=== PATIENT | female | born 1940 | race Caucasian/White ===

== ENCOUNTER → 2016-08-13 | Outpatient (CLI) | payer MEDICARE, BC ==
[2016-08-13 16:06] LABS: Blood Urea Nitrogen 21 mg/dL (7-17); Non-African American GFR(MDRD) >60 (>60 ml/min/1.73 sqM)
== END ==
LOC: LABWHC1 15:26
PROVIDERS: ATTEND Orthopaedic Surgery Orthopaedic Surgery of the Spine
DX: Z01.818 Encounter for other preprocedural examination (principal); N28.9 Disorder of kidney and ureter, unspecified
CPT/HCPCS: 36415; 82565; 84520

== ENCOUNTER → 2016-11-08 | Outpatient (CLI) | payer MEDICARE, BC ==
--- NOTE | 2016-11-10 12:52 | P.ARTDOP ---
Arterial Doppler LOWER EXTREMITY ARTERIAL DOPPLER: DATE OF SERVICE: 11/08/2016 Reason for study: Bilateral claudication. Doppler waveforms: Multiphasic bilaterally throughout. Pulse volume recording: Normal configuration. Pressure gradients: None. Ankle-brachial indices: Greater than 1 bilaterally. Toe pressures: 111 on the right, 111 on the left Impression: Normal study.
== END ==
LOC: RADUSWWP 12:04
PROVIDERS: ATTEND Physical Medicine & Rehabilitation
DX: I73.9 Peripheral vascular disease, unspecified (principal); R22.9 Localized swelling, mass and lump, unspecified; M51.16 Intervertebral disc disorders with radiculopathy, lumbar region; M47.26 Other spondylosis with radiculopathy, lumbar region; M62.81 Muscle weakness (generalized); M25.551 Pain in right hip
CPT/HCPCS: 93923

== ENCOUNTER → 2018-03-17 | Outpatient (CLI) | payer MEDICARE, BC ==
--- NOTE | 2018-03-17 10:34 | MM ---
Reason for exam: screening (asymptomatic). Last mammogram was performed 2 years and 2 months ago. History: Patient is postmenopausal. Family history of premenopausal breast cancer in paternal aunt at age 40. Benign cyst aspiration of the left breast, 1979. Physical Findings: A clinical breast exam by your physician is recommended on an annual basis and results should be correlated with mammographic findings. MG 3D Screening Mammo W/Cad Bilateral CC and MLO view(s) were taken. Prior study comparison: January 09, 2016, bilateral MG 3d screening mammo w/cad. January 03, 2014, bilateral MG screening mammo w CAD. There are scattered fibroglandular densities. Stable benign calcifications. There is no discrete abnormality. No significant changes when compared with prior studies. ASSESSMENT: Benign, BI-RAD 2 RECOMMENDATION: Routine screening mammogram of both breasts in 1 year.
--- NOTE | 2018-03-20 08:01 | BD ---
EXAMINATION TYPE: Axial Bone Density DATE OF EXAM: 03/17/2018 COMPARISON: 01/09/2016 CLINICAL HISTORY: Postmenopausal female Height: 65.5 IN Weight: 222 LBS RISK FACTORS HISTORY OF: Active: YES Diet low in dairy products/other sources of calcium: YES Postmenopausal woman: AGE 48 Lost more than 2 inches in height since high school: YES 03/15" MEDICATIONS: Thyroid Medications: YES Which medication: Levothyroxine How Lon YEARS Additional Medications: VIT D, LEVOTHYROXINE, ZOLOFT, EXAM MEASUREMENTS: Bone mineral densitometry was performed using the [employer] System. PT STATES HAD DISC SURGERY IN 1999 TO L-SPINE. Bone mineral density as measured about the Lumbar spine is: ----- L1-L4(G/cm2): 1.211 T Score Values are as follows: ----- L2: -0.9 ----- L3: 1.8 ----- L4: 2.3 ----- L1-L4: 0.3 Bone mineral density BASELINE Bone mineral density about the R hip (g/cm2): 0.990 Bone mineral density about the L hip (g/cm2): 0.835 T Score values are as follows: -----R Neck: -0.3 -----L Neck: -1.5 -----R Total: -0.5 -----L Total: -0.7 Bone mineral density has: Decreased -1.2% since study of: 01/09/2016 IMPRESSION: Osteopenia (T Score between -2.5 and -1) now identified femoral neck level left hip. There is slightly increased risk of fracture and the patient may be considered for treatment. Re-Screen 2-5 years. NOTE: T-SCORE=SD OF THE YOUNG ADULT MEAN.
== END ==
LOC: RADMAMWWP 07:12
PROVIDERS: ATTEND Internal Medicine
DX: Z12.31 Encounter for screening mammogram for malignant neoplasm of breast (principal); M85.80 Other specified disorders of bone density and structure, unspecified site; Z78.0 Asymptomatic menopausal state
CPT/HCPCS: 77063; 77067; 77080

== ENCOUNTER → 2018-04-18 | Outpatient (CLI) | payer MEDICARE, BC ==
--- NOTE | 2018-04-18 15:34 | CONS ---
CONSULTATION REASON FOR CONSULTATION: This is a consultation for sleep apnea. HISTORY OF PRESENT ILLNESS: 77-year-old female patient. Primary of Dr. Schmidt, coming in for a re-evaluation regarding obstructive sleep apnea. I diagnosed this patient with ESTEBAN back in September of 2014. At that time, the patient had severe ESTEBAN with an AHI of 39.5. She also demonstrated severe nocturnal oxygen desaturation. The patient dropped her pulse ox below 90%. 48% of sleep time. Her sleep efficiency was poor at 46% and she suffers from excessive daytime sleepiness. Her body mass index back then was 34.5. She had asthma and hyperlipidemia as comorbidities. CPAP titration was done. The patient was started on CPAP pressure of 13 cm of water. Note that the patient continued to have poor sleep efficiency that improved up to 71% while on the titration. However it did not normalize. Obstructive respiratory events were eliminated. Periodic limb movements were noted that were moderate to severe in nature. The patient continued to have some difficulties in tolerating the CPAP and ultimately she quit the treatment and she has been off treatment for the past 3 years. She is coming in for reevaluation. She is interested in reinitiating back her treatment. Her sleep quality remains poor. She is quite anxious at nighttime. She cannot shut down her brain and she is having difficulty in sleep initiation. She goes to bed around 10 or 11 pm, wakes up 7:00 am in the morning. Does not take any naps. She snores at nighttime and she continues to have symptoms of restlessness and increased anxiety despite being on Zoloft 50 mg p.o. daily. She wakes up with dry mouth. She is very much drowsy and sleepy during the day. PAST MEDICAL HISTORY: 1. Chronic bronchial asthma. 2. Obstructive sleep apnea. 3. Chronic anxiety. 4. Hypothyroidism. 5. Obesity. PAST SURGICAL HISTORY: Includes back surgery, appendectomy. DRUG ALLERGIES: To latex. OUTPATIENT MEDICATION: Include levothyroxine and Zoloft 50 mg p.o. daily, levothyroxine 50 mcg p.o. daily and singular 10 mg p.o. daily. SOCIAL HISTORY: Nonsmoker. No history of alcohol. No history of IV drugs. The patient is and she lives alone at home. FAMILY HISTORY: Negative for sleep apnea. REVIEW OF SYSTEMS: 12-point review of system was done. Positive findings are mentioned above in the history of present illness. Specifically there is no reported palpitations. No heartburn. No shortness of breath or chest pain at night time. She has chronic anxiety and depression. She has had no irritability. No altered mentation. No history of any motor vehicle accident because of feeling drowsy or sleepy. PHYSICAL EXAMINATION: Her current vitals: BP is 163/83, pulse 80, respirations 16, temp 98.2. Saturation 93% on room air. Weight is 224. Height is 5 feet 6 inches and BMI 36.1. General appearance: Calm comfortable, in no acute distress. Head is atraumatic, normocephalic. NECK: Supple. No JVD. No goiter or neck masses. Mallampati class IV. LUNGS: Clear to auscultation. HEART: Sounds regular rate and rhythm. Normal S1, S2. No S3. No S4. No murmurs. ABDOMEN: Soft, nontender. No organomegaly. EXTREMITIES: No edema. No cyanosis or clubbing. NEUROLOGIC: The patient is awake and alert, oriented x3. No focal neurological deficits. PSYCHIATRIC: Negative for anxiety or depression. Skin is negative for any wounds or ulceration. IMPRESSION: 1. Severe obstructive sleep apnea with an AHI of 39. The patient failed CPAP therapy in the past and she is coming in for reevaluation. She still has her older CPAP unit which is set at a pressure of 13 cm of water. Despite some improvement in her overall sleep efficiency, the patient continued to have difficulty in sleep initiation and maintenance. The patient had high arousal index. 2. Periodic limb movements. Moderate to severe in nature with few arousals related to PLMS. 3. Chronic anxiety. 4. Chronic depression. 5. Excessive daytime sleepiness. 6. Obesity with a BMI of 36.1. 7. Bronchial asthma. 8. Hyperlipidemia. PLAN: 1. We will suggest increasing the Zoloft up to 100 mg p.o. daily for better control of the anxiety/depression. 2. We will use 0.5 mg of Xanax half an hour before going to bed for lowering anxiety level and this may work as a sleep inducing agent. 3. Switch the patient to APAP mode with a minimum pressure of 4, maximum pressure of 15. 4. Discontinue the full-face mask. Offer this patient a [employer]ear nose mask medium size which should give her more comfort and tolerability. 5. See me back in 30 days to assess clinical response and compliance with medications. MMODL / IJN: [id number] /
== END | disposition home or self-care (01) ==
LOC: SLEEP 13:24
PROVIDERS: ATTEND Internal Medicine Critical Care Medicine
DX: G47.33 Obstructive sleep apnea (adult) (pediatric) (principal); G47.61 Periodic limb movement disorder; F41.9 Anxiety disorder, unspecified; F32.9 Major depressive disorder, single episode, unspecified; E66.9 Obesity, unspecified; J45.909 Unspecified asthma, uncomplicated; E78.5 Hyperlipidemia, unspecified; E03.9 Hypothyroidism, unspecified; Z68.36 Body mass index [BMI] 36.0-36.9, adult; Z79.899 Other long term (current) drug therapy
CPT/HCPCS: 99211

== ENCOUNTER → 2018-06-22 | Outpatient (CLI) | payer MEDICARE, BC ==
--- NOTE | 2018-06-22 08:27 | US ---
EXAMINATION TYPE: US duplex aorta DATE OF EXAM: 06/22/2018 COMPARISON: NONE CLINICAL HISTORY: Screening for cardiovascular disease Z13.6. No hx AAA, nonsmoker, high cholesterol, no HTN EXAM MEASUREMENTS: Abdominal Aorta: Proximal: 2.0 x 1.8 cm Mid: 1.3 x 1.9 cm Distal: 1.1 x 1.8 cm Bifurcation: Right- 0.6 x 1.2 cm Left- 0.6 x 1.1 cm Bulge seen in distal Aorta = 2.8 x 3.1 x 2.1 cm IMPRESSION: There is a abdominal aortic aneurysm with a maximal dimension of 3.1 cm just above the le ashwini of the aortic bifurcation. Originates below the level of the renal arteries. There is no extensio n into the iliac vasculature.
== END ==
LOC: RADUSWWP 07:37
PROVIDERS: ATTEND Internal Medicine
DX: I71.4 Abdominal aortic aneurysm, without rupture (principal)
CPT/HCPCS: 93979

== ENCOUNTER → 2018-07-04 | Outpatient (CLI) | payer MEDICARE, BC ==
--- NOTE | 2018-07-04 16:36 | PN ---
PROGRESS NOTE SLEEP CENTER PROGRESS NOTE: This 78-year-old female patient is coming in for a compliance check regarding obstructive sleep apnea. The patient had ESTEBAN and her AHI is 39.5 at baseline. The patient has an APAP with a minimum of 4, maximum of 13. On today's evaluation, it is obvious that the patient is successfully treated when she wears the machine. However, she has been wearing the machine only a third of the time. Based on the compliance data, her CPAP use in general has been 02/10. Her CPAP use for more than 4 hours is 01/10. Her leak is 23 L/minute and AHI is down to 4.4 while on treatment with an average CPAP of 11 cm of water. As such, her issue is mainly compliancy with the treatment. Otherwise the patient is doing well. No specific complaints for now. On days that she uses the machine, she feels much more alert and refreshed and energetic. REVIEW OF SYSTEMS: Fourteen-point review of systems was done. Positive findings are all mentioned in the history of present illness. PHYSICAL EXAMINATION: BP is 137/78, pulse 77, respirations 18, temperature 98.4, saturation 99% on room air. Height is 5 feet 5 inches, weight 228. [place] score is 5. BMI 37.3. GENERAL APPEARANCE: Calm, comfortable. HEAD: Atraumatic normocephalic. NECK: Supple. No JVD. No goiter or neck masses. LUNGS: Diminished. Otherwise clear. HEART: Heart sounds are regular rate and rhythm. Normal S1, S2. No S3, S4. No murmurs. ABDOMEN: Soft, nontender. No organomegaly. EXTREMITIES: No edema. No cyanosis or clubbing. NEUROLOGIC: Alert and oriented x3. No focal neurological deficits. PSYCHIATRIC: Negative for anxiety or depression. IMPRESSION: 1. Symptomatic obstructive sleep apnea with an apnea/hypopnea index of 39. Compliance in general has been suboptimal. 2. Hypersomnia secondary to above. 3. Obesity with a body mass index of 37.3. 4. Chronic bronchial asthma, currently inactive and stable. 5. Chronic anxiety. 6. Hypothyroidism. PLAN: 1. Increase the Zoloft to 100 mg p.o. daily. No need for Xanax at this point in time. 2. Will ask the patient to be more compliant with her CPAP treatment; would like her to use her CPAP every night without any interruption. Her treatment is successful whenever she wears the machine. Her AHI is below 5 while on treatment and she has no significant air leaks around the mask. Keep the same mask interface. Continue CPAP at the same setting. 3. Encourage weight loss. 4. See me back in a year's time in followup, earlier if needed. OLAF / HUEY: [id number] /
== END | disposition home or self-care (01) ==
LOC: SLEEP 14:10
PROVIDERS: ATTEND Internal Medicine Critical Care Medicine
DX: G47.33 Obstructive sleep apnea (adult) (pediatric) (principal); E66.9 Obesity, unspecified; J45.909 Unspecified asthma, uncomplicated; F41.9 Anxiety disorder, unspecified; E03.9 Hypothyroidism, unspecified; Z68.37 Body mass index [BMI] 37.0-37.9, adult; Z99.89 Dependence on other enabling machines and devices; Z79.899 Other long term (current) drug therapy

== ENCOUNTER → 2019-02-28 | Outpatient (CLI) | payer MEDICARE, BC ==
--- NOTE | 2019-02-28 08:29 | US ---
EXAMINATION TYPE: US duplex aorta DATE OF EXAM: 02/28/2019 COMPARISON: Ultrasound duplex aorta June 22, 2018. CLINICAL HISTORY: I71.4 AAA. HX AAA. No HTN. Follow up EXAM MEASUREMENTS: Abdominal Aorta: Proximal: 2.5 x 2.3 cm Mid: 1.4 x 1.7 cm Distal: 1.1 x 1.7 cm Bifurcation: Right- 0.9 x 0.6 cm Left- 0.9 x 0.7 cm Distal AAA visualized measuring = 3.2 x 2.7 x 2.3 cm Aorta visualized to bifurcation with felt stable mild aneurysmal change to the distal abdominal aorta measuring up to 3.2 cm transversely. IMPRESSION: Stable focal aneurysm distal abdominal aorta up to just under 3.2 cm.
== END | disposition home or self-care (01) ==
LOC: RADUSWWP 06:46
PROVIDERS: ATTEND Internal Medicine
DX: I71.4 Abdominal aortic aneurysm, without rupture (principal)
CPT/HCPCS: 93979

== ENCOUNTER → 2020-05-27 | Outpatient (CLI) | payer MEDICARE, BC ==
--- NOTE | 2020-05-27 16:04 | US ---
EXAMINATION TYPE: US abdomen complete DATE OF EXAM: 05/27/2020 COMPARISON: 02/28/2019 CLINICAL HISTORY: I71.9 AORTIC ANEURYSM. aortic aneurysm EXAM MEASUREMENTS: Liver Length: 14.9 cm Gallbladder Wall: 0.3 cm Right Kidney: 11.2 x 4.8 x 4.5 cm Left Kidney: 11.5 x 4.6 x 4.4 cm Technical limitations due to patient's body habitus and large amount of overlying bowel content Pancreas: Obscured by bowel gas Liver: limited evaluation, visualized portions appear wnl Gallbladder: no evidence of stones Evidence for sonographic Briones's sign: no CBD: Obscured by overlying bowel gas Spleen: Obscured by overlying bowel gas Right Kidney: no evidence of hydronephrosis Left Kidney: no evidence of hydronephrosis Upper IVC: wnl Abd Aorta: distal AAA = 2.5 x 3.2cm IMPRESSION: 1. Fusiform prominence of the distal abdominal aorta with a focal AP diameter of 2.4 cm. This was pre sent previously and appear stable. 2. Mild to moderate fatty infiltration of the liver.
== END ==
LOC: RADUSWWP 08:13
PROVIDERS: ATTEND Internal Medicine
DX: I71.4 Abdominal aortic aneurysm, without rupture (principal); K76.0 Fatty (change of) liver, not elsewhere classified
CPT/HCPCS: 76700

== ENCOUNTER → 2020-12-05 | Outpatient (CLI) | payer MEDICARE, BC ==
--- NOTE | 2020-12-05 15:59 | US ---
EXAMINATION TYPE: US carotid duplex BILAT DATE OF EXAM: 12/05/2020 COMPARISON: NONE CLINICAL HISTORY: I77.9 Carotid arterial disease. No HTN. EXAM MEASUREMENTS: RIGHT: Peak Systolic Velocity (PSV) cm/sec ----- Right CCA: 101.1 ----- Right ICA: 126.0 ----- Right ECA: 66.1 ICA/CCA ratio: 1.2 RIGHT: End Diastole cm/sec ----- Right CCA: 19.8 ----- Right ICA: 25.4 ----- Right ECA: 0.0 LEFT: Peak Systolic Velocity (PSV) cm/sec ----- Left CCA: 95.6 ----- Left ICA: 108.6 ----- Left ECA: 114.5 ICA/CCA ratio: 1.1 LEFT: End Diastole cm/sec ----- Left CCA: 12.8 ----- Left ICA: 25.8 ----- Left ECA: 11.1 VERTEBRALS (direction of flow): Right Vertebral: Antegrade Left Vertebral: Antegrade Rhythm: Arrhythmia Plaque in bilateral bulbs. Thickened paulino. No significant stenosis. Elevated left CCA proximal ve locity. IMPRESSION: No hemodynamically significant stenosis seen. Criteria for Assigning % of Stenosis / Diameter reduction (Estimation based on the indirect measurements of the internal carotid artery velocities (ICA PSV). 1. Normal (no stenosis)=ICA PSV < 125 cm/s: ratio < 2.0: ICA EDV<40 cm/s. 2. Less than 50% stenosis=ICA PSV < 125 cm/s: ratio < 2.0: ICA EDV<40 cm/s. 3. 50 to 69% stenosis=ICA PSV of 125 to 230 cm/s: ration 2.0 ? 4.0: ICA EDV 40-100 cm/s. 4. Greater than 70% stenosis to near occlusion= ICA PSV > 230 cm/s: ratio > 4.0: ICA EDV > 100 cm/s. 5. Near occlusion= ICA PSV velocities may be low or undetectable: variable ratio and ICA EDV. 6. Total occlusion=unable to detect flow.
== END | disposition home or self-care (01) ==
LOC: RADUSWWP 15:28
PROVIDERS: ATTEND Internal Medicine
DX: I77.9 Disorder of arteries and arterioles, unspecified (principal)
CPT/HCPCS: 93880

== ENCOUNTER → 2021-05-29 | Outpatient (CLI) | payer MEDICARE, BC ==
--- NOTE | 2021-05-29 10:22 | BD ---
EXAMINATION TYPE: Axial Bone Density DATE OF EXAM: 05/29/2021 COMPARISON: 03/17/2018 DEXA bone scan. CLINICAL HISTORY: 81 years year old Female. ICD-10 CODE: M85.80 osteopenia Height: 65 IN Weight: 216 LBS RISK FACTORS HISTORY OF: Surgery to Spine: PT HAD A HERNIATED DISC IN L SPINE IN 1998. Active: YES Diet low in dairy products/other sources of calcium: YES Postmenopausal woman: AGE 51 Lost more than 2 inches in height since high school: YES 03/15" MEDICATIONS: Thyroid Medications: YES Which medication: Synthroid How Lon+ YEARS Additional Medications: VIT C, VIT D, SERTRALINE, LEVOTHYROXINE, MONTELUKAST, COQ10 EXAM MEASUREMENTS: Bone mineral densitometry was performed using the [employer] System. Bone mineral density as measured about the Lumbar spine is: ----- L1-L4(G/cm2): 1.217 T Score Values are as follows: ----- L1: -1.5 ----- L2: -1.0 ----- L3: 1.7 ----- L4: 1.9 ----- L1-L4: 0.3 Bone mineral density has: Decreased -1.7% since study of: 03/17/2018 Bone mineral density about the R hip (g/cm2): 0.877 Bone mineral density about the L hip (g/cm2): 0.822 T Score values are as follows: -----R Neck: -1.2 -----L Neck: -1.6 -----R Total: -0.8 -----L Total: -0.9 Bone mineral density has: Decreased -3.2% since study of: 03/17/2018 FRAX%s: The graph provided illustrates a 12.6 chance for a major osteoporotic fx and a 3.2 chance for the hips probability for fx in 10 years time. IMPRESSION: Osteopenia (T Score between -2.5 and -1) remains present. There remains slightly increased risk of fracture and the patient may be considered for treatment. Re-Screen 2-5 years. NOTE: T-SCORE=SD OF THE YOUNG ADULT MEAN.
== END | disposition home or self-care (01) ==
LOC: RADBDWWP 09:14
PROVIDERS: ATTEND Internal Medicine
DX: M85.80 Other specified disorders of bone density and structure, unspecified site (principal)
CPT/HCPCS: 77080

== ENCOUNTER 2021-09-21 15:57 | Observation (INO) | payer MEDICARE, BC ==
[2021-09-21] MEDS ORDERED: SODIUM CHLORIDE 0.9% 1,000 ML IV ONE (17:32)
[2021-09-21 18:19] LABS: Basophils # (A) 0.1 k/uL (0-0.2); Basophils % (A) 1 %; Eosinophils # (A) 0.1 k/uL (0-0.7); Eosinophils % (A) 1 %; HCT 45.1 % (34.0-46.0); HGB 14.9 gm/dL (11.4-16.0); Lymphocytes # (A) 1.3 k/uL (1.0-4.8); Lymphocytes % (A) 14 %; MCH 27.9 pg (25.0-35.0); MCV 84.7 fL (80.0-100.0); Mean Platelet Volume 8.5; Monocytes # (A) 1.2 k/uL (0-1.0); Monocytes % (A) 13 %; Neutrophils # (A) 6.3 k/uL (1.3-7.7); Neutrophils % (A) 68 %; Platelet Count 291 k/uL (150-450); RBC 5.32 m/uL (3.80-5.40); RDW 13.1 % (11.5-15.5); WBC 9.3 k/uL (3.8-10.6)
[2021-09-21] MEDS ORDERED: cloNIDine HCL 0.2 MG TAB PO STA (18:28)
[2021-09-21 18:29] LABS: Albumin 4.5 g/dL (3.5-5.0); Potassium 3.9 mmol/L (3.5-5.1); Total Bilirubin 0.4 mg/dL (0.2-1.3); Total Protein 7.5 g/dL (6.3-8.2)
[2021-09-21] MEDS ORDERED: hydrALAZINE HCL 20 MG/ML 1 ML VIAL IVP STA (19:27)
--- NOTE | 2021-09-21 19:29 | ED ---
General Adult HPI - General Chief complaint: Recheck/Abnormal Lab/Rx Stated complaint: high BP sent by Time Seen by Provider: 09/21/21 17:15 Source: patient Mode of arrival: ambulatory Limitations: no limitations - History of Present Illness Initial comments: 81-year-old female presents emergency Department with high blood pressure. Sent in from Dr. Morfin's office. Patient recently had left-sided scalp pain with development of rash. Went into urgent care and was placed on antivirals for shingles. Today the patient had a follow-up appointment with her primary care physician. Blood pressure was obtained in office and found to be high. Patient has no history of hypertension. Her primary care physician did want her evaluated for the hypertension however she had an appointment at 3:00 with her rivet sticker. She did go to the ophthalmology appointments and then afterwards came into the emergency department. States that her hypertension is asymptomatic. Denies any headaches or visual changes. Patient does not have any significant pain in or around her eye. No chest pain or shortness of breath. No additional new medications. Reports that at her eye appointment visit at the eye was not affected by the shingles according to the rivet sticker. No other alleviating, precipitating or modifying factors - Related Data Home Medications Medication Instructions Recorded Confirmed Acetaminophen-Codeine 300-30mg 1 tab PO Q6H PRN 09/21/21 09/21/21 [Tylenol w/codeine #3] Acyclovir [Zovirax] 800 mg PO 5XD 09/21/21 09/21/21 Ascorbic Acid [Vitamin C] 1,000 mg PO DAILY 09/21/21 09/21/21 Ezetimibe [Zetia] 10 mg PO DAILY 09/21/21 09/21/21 Fluticasone Nasal [place] [Flonase 2 spr EA NOSTRIL DAILY PRN 09/21/21 09/21/21 Nasal [place]] Levothyroxine Sodium [Euthyrox] 50 mcg PO DAILY 09/21/21 09/21/21 Montelukast [Singulair] 10 mg PO DAILY 09/21/21 09/21/21 Sertraline HCl [Zoloft] 75 mg PO DAILY 09/21/21 09/21/21 Vitamin E (Dl,Tocopheryl Acet) 400 unit PO DAILY 09/21/21 09/21/21 [Vitamin E (400 Iu = 180 mg)] Previous Rx's Medication Instructions Recorded amLODIPine [Norvasc] 10 mg PO DAILY #30 tablet 09/21/21 Allergies Allergy/AdvReac Type Severity Reaction Status Date / Time Latex, Natural Rubber Allergy Rash/Hives Verified 09/21/21 18:02 Review of Systems ROS Statement: Those systems with pertinent positive or pertinent negative responses have been documented in the HPI. ROS Other: All systems not noted in ROS Statement are negative. Past Medical History Past Medical History: Hyperlipidemia, Thyroid Disorder Past Surgical History: Appendectomy, Back Surgery Past Psychological History: No Psychological Hx Reported Smoking Status: Never smoker Past Alcohol Use History: Occasional Past Drug Use History: None Reported - Past Family History family Family Medical History: No Reported History General Exam Limitations: no limitations General appearance: alert, in no apparent distress Head exam: Present: atraumatic, normocephalic, other (Vesicular rash in healing stages located over the V1 distribution on the left. Swelling to the upper and lower eyelids however no ocular involvement) Eye exam: Present: normal appearance, PERRL, EOMI. Absent: scleral icterus, conjunctival injection, periorbital swelling ENT exam: Present: normal exam, mucous membranes moist Neck exam: Present: normal inspection. Absent: tenderness, meningismus, lymphadenopathy Respiratory exam: Present: normal lung sounds bilaterally. Absent: respiratory distress, wheezes, rales, rhonchi, stridor Cardiovascular Exam: Present: regular rate, normal rhythm, normal heart sounds. Absent: systolic murmur, diastolic murmur, rubs, gallop, clicks GI/Abdominal exam: Present: soft, normal bowel sounds. Absent: distended, tenderness, guarding, rebound, rigid Extremities exam: Present: normal inspection, full ROM, normal capillary refill. Absent: tenderness, pedal edema, joint swelling, calf tenderness Back exam: Present: normal inspection Neurological exam: Present: alert, oriented X3, CN II-XII intact Psychiatric exam: Present: normal affect, normal mood Skin exam: Present: warm, dry, intact, normal color. Absent: rash Course Vital Signs 09/21/21 09/21/21 09/21/21 16:41 17:44 18:00 Temperature 98.0 F Pulse Rate 78 74 73 Respiratory 18 18 18 Rate Blood Pressure 214/103 234/98 207/90 O2 Sat by Pulse 93 L 94 L 90 L Oximetry 09/21/21 09/21/21 09/21/21 21:10 21:37 22:00 Temperature Pulse Rate 87 64 66 Respiratory 18 18 16 Rate Blood Pressure 132/60 93/46 150/59 O2 Sat by Pulse 97 91 L 97 Oximetry 09/21/21 22:19 Temperature Pulse Rate 81 Respiratory 16 Rate Blood Pressure 165/65 O2 Sat by Pulse 97 Oximetry EKG Findings - EKG Comments: EKG Findings:: EKG demonstrates sinus rhythm with a rate of 68. NV interval 182. QRS 102. QTC of 432. No acute ST segment elevations or depressions Medical Decision Making - Medical Decision Making Upon arrival patient was placed in room 6. There are history and physical exam was performed. IV access is established and laboratory studies are conducted. 12-lead EKG was performed. She was given Catapres 0.1 mg. Reevaluation the patient continues to have market hypertension. She is then given 20 mg of hydralazine IV. Patient was placed on Norvasc 10 mg the outpatient setting. She is instructed to keep a blood pressure log and follow up with her primary care doctor with measurements. She has any new or worsening symptoms return to the emergency room. Patient agreed and discharged orders were placed. Patient was observed in the emergency department for several hours. Upon discharge the patient did start to feel dizzy. Repeat blood pressures were performed and the patient did drop to 88 systolic. She was given IV fluids. Did recommend overnight observation of her labile blood pressures for which she did agree to. Blood pressure does rebound fairly quickly. I spoke with Dr. Rausch who agreed to admit the patient - Lab Data Result diagrams: 09/21/21 18:05 09/21/21 18:05 Lab Results 09/21/21 09/21/21 09/21/21 Range/Units 18:05 18:05 18:05 WBC 9.3 (3.8-10.6) k/uL RBC 5.32 (3.80-5.40) m/uL Hgb 14.9 (11.4-16.0) gm/dL Hct 45.1 (34.0-46.0) % MCV 84.7 (80.0-100.0) fL MCH 27.9 (25.0-35.0) pg MCHC 33.0 (31.0-37.0) g/dL RDW 13.1 (11.5-15.5) % Plt Count 291 (150-450) k/uL MPV 8.5 Neutrophils % 68 % Lymphocytes % 14 % Monocytes % 13 % Eosinophils % 1 % Basophils % 1 % Neutrophils # 6.3 (1.3-7.7) k/uL Lymphocytes # 1.3 (1.0-4.8) k/uL Monocytes # 1.2 H (0-1.0) k/uL Eosinophils # 0.1 (0-0.7) k/uL Basophils # 0.1 (0-0.2) k/uL Sodium 136 L (137-145) mmol/L Potassium 3.9 (3.5-5.1) mmol/L Chloride 103 (98-107) mmol/L Carbon Dioxide 26 (22-30) mmol/L Anion Gap 7 mmol/L BUN 14 (7-17) mg/dL Creatinine 0.81 (0.52-1.04) mg/dL Est GFR (CKD-EPI)AfAm 78 (>60 ml/min/1.73 sqM) Est GFR (CKD-EPI)NonAf 68 (>60 ml/min/1.73 sqM) Glucose 95 (74-99) mg/dL Calcium 9.0 (8.4-10.2) mg/dL Total Bilirubin 0.4 (0.2-1.3) mg/dL AST 19 (14-36) U/L ALT 12 (4-34) U/L Alkaline Phosphatase 81 (38-126) U/L Troponin I <0.012 (0.000-0.034) ng/mL Total Protein 7.5 (6.3-8.2) g/dL Albumin 4.5 (3.5-5.0) g/dL Disposition Clinical Impression: Hypertension, Shingles Disposition: ADMITTED IP TO THIS [facility] Condition: Stable Is patient prescribed a controlled substance at d/c from ED?: No Time of Disposition: 19:38 Decision to Admit Reason: Admit from EC Decision Date: 09/21/21 Decision Time: 21:42
[2021-09-21] MEDS ORDERED: SODIUM CHLORIDE 0.9% 2,000 ML IV ONE (21:33)
[2021-09-21] MEDS ORDERED: NALOXONE 0.4 MG/ML 1 ML VIAL IV PRN (21:42)
[2021-09-21] MEDS ORDERED: SODIUM CHLORIDE 0.9% 1,000 ML IV SCH (21:45)
[2021-09-22] MEDS ORDERED: ALPRAZolam 0.5 MG TAB PO STA (00:26)
--- NOTE | 2021-09-22 00:51 | P.HPIM ---
History of Present Illness H&P Date: 09/21/21 Chief Complaint: Hypertension uncontrolled 81-year-old female with hypothyroid hyperlipidemia Patient was sent in from her primary care office due to elevated blood pressure. Patient doesn't have history of hypertension she reports her blood pressure normally runs low. However since when patient's been having some headache and over the weekend she started having a rash over the left side of the forehead she went to an urgent care was diagnosed with shingles was started on acyclovir today she was following up with her manager of change and primary care doctor, her manager of change clear her exam as her left eye was not involved. Her primary care doctor found that her blood pressure was out of control she was asymptomatic denies any chest pain or focal neuro deficits denies any trouble breathing denies any headache changes in her vision or hearing Upon presentation to our ED she was found to have systolic blood pressure more than 200 she was given clonidine and then hydralazine and then ended up having hypotension with systolic in the 80s patient ended up staying in the hospital for monitoring overnight Review of Systems Pertinent positives as noted in HPI. All other systems were reviewed and are negative Past Medical History Past Medical History: Hyperlipidemia, Thyroid Disorder Past Surgical History: Appendectomy, Back Surgery Past Psychological History: No Psychological Hx Reported Smoking Status: Never smoker Past Alcohol Use History: Occasional Past Drug Use History: None Reported - Past Family History family Family Medical History: No Reported History Medications and Allergies Home Medications Medication Instructions Recorded Confirmed Type Acetaminophen-Codeine 300-30mg 1 tab PO Q6H PRN 09/21/21 09/21/21 History [Tylenol w/codeine #3] Acyclovir [Zovirax] 800 mg PO 5XD 09/21/21 09/21/21 History Ascorbic Acid [Vitamin C] 1,000 mg PO DAILY 09/21/21 09/21/21 History Ezetimibe [Zetia] 10 mg PO DAILY 09/21/21 09/21/21 History Fluticasone Nasal [place] [Flonase 2 spr EA NOSTRIL DAILY PRN 09/21/21 09/21/21 History Nasal [place]] Levothyroxine Sodium [Euthyrox] 50 mcg PO DAILY 09/21/21 09/21/21 History Montelukast [Singulair] 10 mg PO DAILY 09/21/21 09/21/21 History Sertraline HCl [Zoloft] 75 mg PO DAILY 09/21/21 09/21/21 History Vitamin E (Dl,Tocopheryl Acet) 400 unit PO DAILY 09/21/21 09/21/21 History [Vitamin E (400 Iu = 180 mg)] amLODIPine [Norvasc] 10 mg PO DAILY #30 tablet 09/21/21 Rx Allergies Allergy/AdvReac Type Severity Reaction Status Date / Time Latex, Natural Rubber Allergy Rash/Hives Verified 09/21/21 18:02 Physical Exam Vitals: Vital Signs Temp Pulse Resp BP Pulse Ox 09/21/21 21:37 64 18 93/46 91 L 09/21/21 21:10 87 18 132/60 97 09/21/21 18:00 73 18 207/90 90 L 09/21/21 17:44 74 18 234/98 94 L 09/21/21 16:41 98.0 F 78 18 214/103 93 L Intake and Output 09/21/21 09/21/21 09/21/21 06:59 14:59 22:59 Other: Weight 95.254 kg Constitutional: No acute distress, conversant, pleasant Eyes: Anicteric sclerae, moist conjunctiva, Pupils equal round reactive to light ENMT: NC/AT Oropharynx clear, no erythema, or exudates Neck: Supple, FROM, no masses, or JVD No carotid bruits No thyromegaly Lungs: Clear to auscultation Clear to percussion Normal respiratory effort, no accessory muscle use Cardiovascular: Heart regular in rate and rhythm, No murmurs, gallops, or rubs No peripheral edema Abdominal: Soft Nontender, no guarding, rebound or rigidity Abdomen moving with respiration Normoactive bowel sounds No hepatomegaly, No splenomegaly No palpable mass No abdominal wall hernia noted Skin: Rash over the left side of the forehead with small papules no clear vesicles. Extremities: No digital cyanosis No clubbing Pedal pulses intact and symmetrical Radial pulses intact and symmetrical No calf tenderness Psychiatric: Alert and oriented to person, place and time Appropriate affect fair judgement Neuro Muscles Strength 4/5 in all 4 extremities Sensation to light touch grossly present throughout Cranial nerves II-XII grossly intact No focal sensory deficits Lymphatics: no palpable cervical or supraclavicular , or inguinal lymph nodes Results CBC & Chem 7: 09/21/21 18:05 09/21/21 18:05 Labs: Abnormal Lab Results - Last 24 Hours (Table) 09/21/21 09/21/21 Range/Units 18:05 18:05 Monocytes # 1.2 H (0-1.0) k/uL Sodium 136 L (137-145) mmol/L Assessment and Plan Assessment: Elevated blood pressure followed by iatrogenic hypotension, resolved now Monitoring overnight monitor vital signs Gentle IV fluid hydration Xanax for anxiety Left forehead shingles V1 distribution Continue with acyclovir Chronic conditions Hypothyroid resume levothyroxine Hyperlipidemia resume statin Follow-up BMP in the morning Full code DVT prophylaxis mechanical
[2021-09-22] MEDS: ACYCLOVIR 800 MG TAB PO SCH ×3 (00:59→12:02)
[2021-09-22 06:06] LABS: Basophils # (A) 0.1 k/uL (0-0.2); Basophils % (A) 1 %; Eosinophils % (A) 0 %; HCT 40.7 % (34.0-46.0); HGB 13.5 gm/dL (11.4-16.0); Lymphocytes # (A) 1.3 k/uL (1.0-4.8); Lymphocytes % (A) 14 %; MCH 28.3 pg (25.0-35.0); MCHC 33.1 g/dL (31.0-37.0); MCV 85.3 fL (80.0-100.0); Mean Platelet Volume 9.1; Monocytes # (A) 1.1 k/uL (0-1.0); Monocytes % (A) 13 %; Neutrophils # (A) 6.2 k/uL (1.3-7.7); Neutrophils % (A) 70 %; Platelet Count 258 k/uL (150-450); RBC 4.77 m/uL (3.80-5.40); RDW 13.2 % (11.5-15.5); WBC 8.8 k/uL (3.8-10.6)
[2021-09-22 06:20] LABS: Calcium 8.1 mg/dL (8.4-10.2); Potassium 3.9 mmol/L (3.5-5.1)
[2021-09-22 07:45] VITALS: BP 172/76; PULSE 78; RESP 19; TEMP 98.9
--- NOTE | 2021-09-22 13:48 | P.DS ---
Providers Date of admission: 09/21/21 21:42 Expected date of discharge: 09/22/21 Attending physician: Merlin Yu MD Primary care physician: Paradise Morfin MD Hospital Course: 81-year-old female with hypothyroidism, hyperlipidemia, who was sent in from her primary care office due to elevated blood pressure. Patient doesn't have history of hypertension. She recently was diagnosed with shingles on the left eye. Over the weekend she was having some headache and a rash over the left side of the forehead. She was started on acyclovir by an urgent care. She followed up with her song plugger and primary care doctor, her song plugger cleared her exam as her left eye was not involved. Her primary care doctor found that her blood pressure was out of control up to 230/110 according to her daughter. She was asymptomatic however, denied any chest pain or focal neuro deficits denies any trouble breathing denies any headache changes in her vision or hearing. Upon presentation to our ED she was found to have systolic blood pressure more than 200 she was given clonidine and then hydralazine and then ended up having hypotension with systolic in the 80s patient ended up staying in the hospital for monitoring overnight. Since admission patient has been having elevated blood pressure ranging between 150-190 systolic. She was not given any blood pressure medications while hospitalized. Currently doing well. She will be discharged home on HCTZ and Norvasc. she was instructed to follow-up with her primary care physician to check on her blood pressure. Patient Condition at Discharge: Stable Plan - Discharge Summary Discharge Rx Participant: No New Discharge Prescriptions: New amLODIPine [Norvasc] 10 mg PO DAILY #30 tablet hydroCHLOROthiazide 12.5 mg PO DAILY 30 Days #30 cap Continue Montelukast [Singulair] 10 mg PO DAILY Ezetimibe [Zetia] 10 mg PO DAILY Acetaminophen-Codeine 300-30mg [Tylenol w/codeine #3] 1 tab PO Q6H PRN PRN Reason: Pain Ascorbic Acid [Vitamin C] 1,000 mg PO DAILY Vitamin E (Dl,Tocopheryl Acet) [Vitamin E (400 Iu = 180 mg)] 400 unit PO DAILY Sertraline HCl [Zoloft] 75 mg PO DAILY Fluticasone Nasal [place] [Flonase Nasal [place]] 2 spr EA NOSTRIL DAILY PRN PRN Reason: Allergy Symptoms Levothyroxine Sodium [Euthyrox] 50 mcg PO DAILY Acyclovir [Zovirax] 800 mg PO 5XD Discharge Medication List Acetaminophen-Codeine 300-30mg [Tylenol w/codeine #3] 1 tab PO Q6H PRN 09/21/21 [History] Acyclovir [Zovirax] 800 mg PO 5XD 09/21/21 [History] Ascorbic Acid [Vitamin C] 1,000 mg PO DAILY 09/21/21 [History] Ezetimibe [Zetia] 10 mg PO DAILY 09/21/21 [History] Fluticasone Nasal [place] [Flonase Nasal [place]] 2 spr EA NOSTRIL DAILY PRN 09/21/21 [History] Levothyroxine Sodium [Euthyrox] 50 mcg PO DAILY 09/21/21 [History] Montelukast [Singulair] 10 mg PO DAILY 09/21/21 [History] Sertraline HCl [Zoloft] 75 mg PO DAILY 09/21/21 [History] Vitamin E (Dl,Tocopheryl Acet) [Vitamin E (400 Iu = 180 mg)] 400 unit PO DAILY 09/21/21 [History] amLODIPine [Norvasc] 10 mg PO DAILY #30 tablet 09/21/21 [Rx] hydroCHLOROthiazide 12.5 mg PO DAILY 30 Days #30 cap 09/22/21 [Rx] Follow up Appointment(s)/Referral(s): Paradise Morfin MD [Primary Care Provider] - 1-2 days Patient Instructions/Handouts: Hypertension (ED) Activity/Diet/Wound Care/Special Instructions: Please follow-up with your primary care doctor in 1 week. Take the Norvasc daily. Record your blood pressures 3 times daily and keep a log. Take this in to your primary care appointment. You may need adjustment here blood pressure medications. Return for any new or worsening symptoms
== END 2021-09-22 14:23 | disposition home or self-care (01) ==
LOC: EC 15:57 → 6NMEDSUR 21:42
PROVIDERS: ADMIT Internal Medicine; ATTEND Internal Medicine
DX: I10 Essential (primary) hypertension (principal); B02.9 Zoster without complications; I95.89 Other hypotension; E78.5 Hyperlipidemia, unspecified; E03.9 Hypothyroidism, unspecified; F41.9 Anxiety disorder, unspecified; Z79.890 Hormone replacement therapy; Z79.899 Other long term (current) drug therapy; Z91.040 Latex allergy status; Z90.49 Acquired absence of other specified parts of digestive tract; Z98.890 Other specified postprocedural states
CPT/HCPCS: 96361; 96374; 99284; 36415; 93005; 80053; 80048; 84484; 85025 ×2; G0378 ×2; J0360

== ENCOUNTER → 2023-05-31 | Outpatient (CLI) | payer MEDICARE, BC ==
--- NOTE | 2023-05-31 12:10 | BD ---
EXAMINATION TYPE: Axial Bone Density DATE OF EXAM: 05/31/2023 CLINICAL HISTORY: 83 years old Female. ICD-10 CODE: M85.80 OTH DISRD OF BONE DENSITY AND STRUCTURE, Height: 64.5 in Weight: 219 lbs MEDICATIONS: Thyroid Medications: Which medication: Levothyroxine How Lon+ years EXAM MEASUREMENTS: Bone mineral densitometry was performed using the [employer] System. Bone mineral density as measured about the Lumbar spine is: ----- L1-L4(G/cm2): 1.199 T Score Values are as follows: ----- L1: -1.5 ----- L2: -0.8 ----- L3: 1.5 ----- L4: 1.0 ----- L1-L4: 0.2 Z Score Values are as follows: ----- L1: -0.7 ----- L2: 0.0 ----- L3: 2.3 ----- L4: 1.7 ----- L1-L4: 0.9 Bone mineral density has: Decreased -1.5% since study of: 05/29/2021 Bone mineral density about the R hip (g/cm2): 0.896 Bone mineral density about the L hip (g/cm2): 0.909 T Score values are as follows: -----R Neck: -1.2 -----L Neck: -1.5 -----R Total: -0.9 -----L Total: -0.8 Z Score values are as follows: -----R Neck: 0.4 -----L Neck: 0.1 -----R Total: 0.6 -----L Total: 0.7 Bone mineral density has: Increased 0.1% since study of: 05/29/2021 FRAX%s: The graph provided illustrates a 12.5% chance for a major osteoporotic fx and a 3.2% chance f or the hips probability for fx in 10 years time. IMPRESSION: Osteopenia (T Score between -2.5 and -1). There is slightly increased risk of fracture and the patient may be considered for treatment. Re-Screen 2-5 years. NOTE: T-SCORE=SD OF THE YOUNG ADULT MEAN.
== END | disposition home or self-care (01) ==
LOC: RADBDWWP 08:48
PROVIDERS: ATTEND Family Medicine
DX: M85.89 Other specified disorders of bone density and structure, multiple sites (principal)
CPT/HCPCS: 77080